=== PATIENT | female | born 1940 | race Caucasian/White ===

== ENCOUNTER 2019-09-03 12:12 | Outpatient (CLI) | payer MEDICARE, BC ==
--- NOTE | 2019-09-03 13:06 | MRI ---
Exam: Brain MRI without contrast HISTORY: Dementia, without behavioral disturbance. Stroke 3 years ago. Progressively worsening memory loss COMPARISON: 09/01/2015 FINDINGS: Calvarial marrow signal intensity: Appropriate T1 signal Gradient echo sequence: No hemorrhage Brain parenchyma: No mass, mass effect or midline shift. Brain volume, age-appropriate. Cortical ivy-white matter differentiation: Preserved Restricted diffusion: Central arterial flow voids are maintained. Absent restricted diffusion White matter signal intensities: T2, FLAIR white matter hyperintensities due to chronic small vessel ischemic changes Sinuses: Adequate aeration of the paranasal sinuses and mastoid air cells. IMPRESSION: 1. No acute intracranial process 2. Age-appropriate atrophy 3. Chronic small vessel ischemic changes white matter, which have progressed since the previous exami nation. 4. Absent restricted diffusion. No acute infarct.
== END 2019-09-03 12:13 | disposition home or self-care (01) ==
LOC: MRI 12:12
PROVIDERS: ATTEND Internal Medicine
DX: F03.90 Unspecified dementia, unspecified severity, without behavioral disturbance, psychotic disturbance, mood disturbance, and anxiety (principal); I67.82 Cerebral ischemia
CPT/HCPCS: 70551

== ENCOUNTER 2021-04-26 14:33 | Outpatient (CLI) | payer MEDICARE, BC | END 2021-04-26 14:34 | disposition home or self-care (01) | LOC: BICULT 14:33 | PROVIDERS: ATTEND Internal Medicine | DX: N18.32 Chronic kidney disease, stage 3b (principal); N28.1 Cyst of kidney, acquired; N28.89 Other specified disorders of kidney and ureter | CPT/HCPCS: 76770 ==